=== PATIENT | male | born 1995 | race Caucasian/White ===

== ENCOUNTER 2024-04-07 13:38 | Emergency (ER) | payer OTHER ==
[~2024-04-07] VITALS: Ht 177.8 cm; Wt 149.9 kg
[2024-04-07 13:49] VITALS: BP 151/85; PULSE 82; RESP 16; TEMP 98.1; O2SAT 98
[2024-04-07] MEDS ORDERED: ACET-8905 PO (14:36)
[2024-04-07] MEDS: KETOROLAC 60 MG/2 ML VIAL IM ONE (14:36)
[2024-04-07] MEDS ORDERED: IBUP-2213 PO (14:36)
== END 2024-04-07 14:55 | disposition home or self-care (01) ==
LOC: MED 13:38
DX: S13.4XXA Sprain of ligaments of cervical spine, initial encounter (principal); R07.89 Other chest pain; M25.531 Pain in right wrist; M25.532 Pain in left wrist; V49.88XA Car occupant (driver) (passenger) injured in other specified transport accidents, initial encounter; Y93.89 Activity, other specified; Y92.89 Other specified places as the place of occurrence of the external cause; Y99.8 Other external cause status
CPT/HCPCS: 96372; 99283; J1885